=== PATIENT | female | born 1960 | race Caucasian/White ===

== ENCOUNTER 2020-12-01 08:32 | Outpatient (CLI) | payer MEDICARE ==
[~2020-12-01] VITALS: Ht 160 cm; Wt 83.9 kg
[2020-12-01] VITALS (12 sets, daily range): BP systolic 109–185; BP diastolic 78–99
[~2020-12-01 08:32] MED LIST: ALPR0.254 PO; ATOR20TA58 PO; FLUO20CA16 PO; FURO40TA4 PO; HYDR-3165 PO; LISI1TAB37 PO; METF10007 PO; OMEP40CA45 PO; PANT40TA77 PO; TIZA4TAB2 PO
[2020-12-01] MEDS ORDERED: ALPR0.5T6 PO (08:55)
[2020-12-01] MEDS ORDERED: FAMO-63 PO (08:55)
[2020-12-01] MEDS ORDERED: FLUT9.9S NS (08:55)
[2020-12-01] MEDS ORDERED: MULT1CAP33 PO (08:55)
[2020-12-01] MEDS ORDERED: DULO60CA6 PO (08:55)
[2020-12-01] MEDS ORDERED: ESOM40CA PO (08:55)
[2020-12-01] MEDS ORDERED: TIOT4MIS3 IH (08:55)
[2020-12-01] MEDS ORDERED: HYDR25TA PO (08:55)
[2020-12-01] MEDS ORDERED: BREX3TAB PO (08:55)
[2020-12-01] MEDS ORDERED: L.AC1CAP6 PO (08:55)
[2020-12-01] MEDS ORDERED: ATOR10TA60 PO (08:55)
[2020-12-01] MEDS ORDERED: fentaNYL PF VIAL 100 MCG/2 ML VIAL ONE (09:10)
[2020-12-01] MEDS ORDERED: MIDAZOLAM HCL/PF 2 MG/2 ML VIAL. ONE (09:10)
[2020-12-01] MEDS ORDERED: LIDOCAINE WITH 8.4% SOD BICARB 3 ML DISP.SYRIN. ONE (09:11)
[2020-12-01 09:20] LABS: BASO # 0.1 x10^3/uL (0.0-0.2); BASO % 1 % (0-3); EOS # 0.4 x10^3/uL (0.0-0.7); EOS % 5 % (0-3); HEMATOCRIT 42.4 % (36.0-47.0); HEMOGLOBIN 14.3 g/dL (12.0-15.5); LYMPH # 2.8 x10^3/uL (1.0-4.8); LYMPH % 33 % (24-48); MEAN CORPUSCULAR HEMOGLOBIN 31 pg (25-35); MEAN CORPUSCULAR HGB CONC 34 g/dL (31-37); MEAN CORPUSCULAR VOLUME 92 fL (79-100); MONO # 0.7 x10^3/uL (0.0-1.1); MONO % 9 % (0-9); NEUT # 4.4 x10^3/uL (1.8-7.7); NEUT % 52 % (31-73); PLATELET COUNT 304 x10^3/uL (140-400); RED CELL DISTRIBUTION WIDTH 13.7 % (11.5-14.5); WHITE BLOOD COUNT 8.4 x10^3/uL (4.0-11.0)
[2020-12-01] MEDS ORDERED: MIDAZOLAM HCL/PF 2 MG/2 ML VIAL. IV ONE (09:30)
[2020-12-01] MEDS ORDERED: fentaNYL PF VIAL 100 MCG/2 ML VIAL IV ONE (09:30)
[2020-12-01] MEDS ORDERED: LIDOCAINE WITH 8.4% SOD BICARB 3 ML DISP.SYRIN. IJ ONE (09:30)
[2020-12-01 09:39] LABS: PROTHROMBIN TIME PATIENT 12.7 SEC (11.7-14.0)
--- NOTE | 2020-12-01 12:33 | RAD ---
EXAM: Chest, single view. HISTORY: Lung biopsy. COMPARISON: None. FINDINGS: A frontal view of the chest is obtained. There is a left infrahilar nodular opacity. There is no consolidation, pleural effusion or pneumothorax. There is emphysema. The heart is normal in siz e. IMPRESSION: 1. Left infrahilar nodular opacity. Correlate with pathology findings corresponding with biopsy of th is lesion on the same date. No pneumothorax is visible radiographically. 2. Emphysema. Electronically signed by: Judy Nash MD (12/01/2020 12:31 PM) [id number]
--- NOTE | 2020-12-01 12:59 | NUR ---
PIV removed. D/C instructions provided on site care, sedation. Patient verbalized understanding. at bedside. No questions at time of d/c. All belongings taken at time of d/c. Patient's transporting home.
--- NOTE | 2020-12-03 12:52 | RAD ---
CT-guided bone CT-guided biopsy, left lower lobe mass. 12/03/2020 10:47 AM Indication: Left lower lobe lung mass mass Discussion: The risks and benefits of the procedure, including but not limited to, bleeding and infection were discussed patient. Informed consent was obtained. The patient was brought to the CT scanner and placed in the prone position. A timeout procedure was performed CT imaging redemonstrates a spiculated mass in the right lower lobe. 1% lidocaine was administered for local anesthesia. Under intermittent CT guidance 17-gauge needle was advanced into the mass. Core biopsy samples were obtained. A pneumothorax prevention device was deployed. The guiding needle was removed. Manual pressure was held. Repeat CT imaging demonstrates minimal tenting of the pleura without other significant pneumothorax. Sterile dressings were applied. The procedure was performed under conscious sedation including continuous cardiopulmonary monitoring via dedicated sedation nurse. Sedation time: 20 minutes Impression: CT-guided biopsy, spiculated mass left lower lobe PQRS Compliance Statement: One or more of the following individualized dose reduction techniques were utilized for this examination: 1. Automated exposure control 2. Adjustment of the mA and/or kV according to patient size 3. Use of iterative reconstruction technique
--- NOTE | 2020-12-06 11:25 | PATHOLOGY ---
[facility] Accession Number: [id number] . 01 Material submitted: . lung - LEFT LUNG MASS CORE BIOPSY. Modifiers: left . 01 Clinical history: . LEFT LUNG MASS IMAGE GUIDED LEFT LUNG BIOPSY . 02 Diagnosis: Lung "left mass", needle biopsy: - SQUAMOUS CELL CARCINOMA, MODERATE TO POORLY DIFFERENTIATED. . The findings are conveyed to Dr. Altaf Dillon on 12/03/2020 at approximately 11:15. . (MLK:[facility]; 12/03/2020) S 12/03/2020 1158 Local . 02 Comment: The case is seen in co-review by Dr. Shahram Dos Santos, who concurs with the above diagnosis. (MLK:[facility]; 12/03/2020) . 02 Electronically signed: . Toyin Diallo MD, Pathologist NPI- [id number] . 01 Gross description: . The specimen is received in formalin, labeled "Marleen Npaier, left lung BX mass" and consist of 2 soft cummings tissue cores measuring up to 1.2 x less than 0.1cm entirely submitted in A1.([facility]; 12/01/2020) SEBAS/SEBAS 12/01/2020 2210 Local . 02 Microscopic: . Immunohistochemical stain results (properly controlled): . CK5/6 (A1) - Cytoplasmic staining of tumor cells. p40 (A1) - Nuclear staining of tumor cells. Napsin A (A1) - Tumor cells negative. TTF-1 (A1) - Tumor cells negative; pneumocytes positive. . (ML:[facility]; 12/03/2020) . 02 Pathologist provided ICD-10: C34.92 . 02 CPT . 137700, K77145, P32351 Specimen Comment: A courtesy copy of this report has been sent to [phone] Specimen Comment: Report sent to Performed at: 01 [facility] [address] [place] [id number] MD Scotty Baker MD Phone: [phone] Performed at: 02 [facility] [address], [place] [id number] MD Leo Dacosta MD Phone: [phone]
== END 2020-12-01 12:45 | disposition home or self-care (01) ==
LOC: INTRAD 08:32
PROVIDERS: ATTEND Internal Medicine Critical Care Medicine
DX: R91.8 Other nonspecific abnormal finding of lung field (principal); C34.92 Malignant neoplasm of unspecified part of left bronchus or lung; E78.00 Pure hypercholesterolemia, unspecified; E11.9 Type 2 diabetes mellitus without complications; E03.9 Hypothyroidism, unspecified; E66.9 Obesity, unspecified; K21.9 Gastro-esophageal reflux disease without esophagitis; I10 Essential (primary) hypertension; M19.90 Unspecified osteoarthritis, unspecified site; F41.9 Anxiety disorder, unspecified; F32.9 Major depressive disorder, single episode, unspecified; Z87.891 Personal history of nicotine dependence; Z79.899 Other long term (current) drug therapy; Z98.890 Other specified postprocedural states; Z90.710 Acquired absence of both cervix and uterus; Z88.0 Allergy status to penicillin; Z88.2 Allergy status to sulfonamides; Z88.6 Allergy status to analgesic agent; Z88.8 Allergy status to other drugs, medicaments and biological substances; Z20.822 Contact with and (suspected) exposure to COVID-19
CPT/HCPCS: 32408; 36415; 71045; 85025; 85610; 87426; 88305; 88341; 88342; 99152; J2250; J3010; J3490

== ENCOUNTER → 2020-12-10 | Outpatient (CLI) | payer MEDICARE ==
[2020-12-01 12:25] VITALS: BP 160/92
[~2020-12-10] MED LIST changes: +ALPR0.5T6 PO; +ATOR10TA60 PO; +BREX3TAB PO; +DULO60CA6 PO; +ESOM40CA PO; +FAMO-63 PO; +FLUT9.9S NS; +HYDR25TA PO; +L.AC1CAP6 PO; +MULT1CAP33 PO; +TIOT4MIS3 IH
--- NOTE | 2020-12-10 12:40 | RAD ---
EXAM: PET/CT SCAN INDICATION: Lung cancer COMPARISON: CT chest 11/17/2020 PET/CT SCAN TECHNIQUE: Approximately 60 minutes after the intravenous administration of 15.1 millicur ies of F-18 fluorodeoxyglucose (FDG), PET imaging of the body from the base of the skull through the mid thighs was performed. Reconstruction in all 3 planes were performed. The patient's serum glucose level at the time of the F-18 FDG administration was 89 mg/dL. A noncontrast CT scan was obtained for attenuation correction and anatomic localization purposes only and is not considered a diagnostic CT scan. PQRS compliance Statement One or more of the following individualized dose reduction techniques were utilized for this study: 1. Automated exposure control 2. Adjustment of the mA and/or kV according to patient size 3. Use of iterative reconstruction technique FINDINGS: Background: Mediastinal SUV max: 2.72 Liver SUV max: 3.33 HEAD AND NECK: No abnormal radiotracer uptake in the head and neck. CHEST: There is FDG uptake in a 2.4 x 1.9 cm spiculated left lower lobe mass with SUV max 11.4. There are several right axillary lymph nodes increased FDG uptake. One axillary node measuring 1.6 x 1.0 c m has SUV max 7.09. A second measuring 1.8 x 0.9 cm has SUV max 5.05. There are several small subpect oral lymph nodes, one of which has SUV max 5.65 and another 3.33. Of note, the patient had her second Covid vaccine in the right arm on 12/08/2020. There is a focus of FDG uptake in the right hilar region , possibly a small lymph node, SUV max 4.41. Low-level FDG uptake within small left periaortic and sanchez bcarinal lymph nodes with SUV max 2.96, similar to baseline. There is focal FDG uptake at the gastroe sophageal junction with SUV max 5.21. There is mild emphysema. The heart is normal in size. ABDOMEN AND PELVIS: No lymphadenopathy. Scattered FDG uptake in the bowel including distal small douglas l, cecum, and anus with SUV max ranging 5.1-7.7, nonspecific. The liver, gallbladder, pancreas, splee n, adrenal glands, kidneys are normal. MUSCULOSKELETAL: No abnormal FDG uptake. IMPRESSION: 1. FDG avid left lower lobe mass with SUV max 11.4 consistent with the patient's reported lung cancer . 2. FDG uptake in several right axillary lymph nodes and subpectoral lymph nodes with SUV max up to 7. . This is indeterminate but may be reactive to recent Covid vaccine in the right arm. Recommend atten tion on follow-up. 3. Mild FDG uptake in the right hilar region with SUV max 4.41, could be reactive although metastatic disease not excluded. 4. Focal FDG uptake at the GE junction and scattered in the bowel, likely infectious or inflammatory. Electronically signed by: Rosalva Hawkins MD (12/10/2020 12:38 PM) [id number]
== END ==
LOC: PETSC 09:00
PROVIDERS: ATTEND Internal Medicine Critical Care Medicine
DX: R91.8 Other nonspecific abnormal finding of lung field (principal)
CPT/HCPCS: 78815; A9552

== ENCOUNTER → 2021-05-03 | Outpatient (CLI) | payer MEDICARE ==
[2020-12-01 12:25] VITALS: BP 160/92
[~2021-05-03] MED LIST changes: -DULO60CA6 PO; +DULO60CA7 PO; -OMEP40CA45 PO; +OMEP40CA7 PO
[2021-05-03 14:48] LABS: BASO # 0.1 x10^3/uL (0.0-0.2); BASO % 1 % (0-3); EOS # 0.2 x10^3/uL (0.0-0.7); EOS % 3 % (0-3); HEMATOCRIT 39.7 % (36.0-47.0); HEMOGLOBIN 13.4 g/dL (12.0-15.5); LYMPH # 2.4 x10^3/uL (1.0-4.8); LYMPH % 29 % (24-48); MEAN CORPUSCULAR HEMOGLOBIN 32 pg (25-35); MEAN CORPUSCULAR HGB CONC 34 g/dL (31-37); MEAN CORPUSCULAR VOLUME 94 fL (79-100); MONO # 0.6 x10^3/uL (0.0-1.1); MONO % 7 % (0-9); NEUT # 5.1 x10^3/uL (1.8-7.7); NEUT % 60 % (31-73); PLATELET COUNT 253 x10^3/uL (140-400); RED BLOOD COUNT 4.21 x10^6/uL (3.50-5.40); WHITE BLOOD COUNT 8.4 x10^3/uL (4.0-11.0)
[2021-05-03 15:06] LABS: CALCIUM 9.4 mg/dL (8.5-10.1); CREATININE 0.9 mg/dL (0.6-1.0); GFR 64.3
[2021-05-03 15:21] LABS: ALBUMIN 3.3 g/dL (3.4-5.0); TOTAL BILIRUBIN 0.3 mg/dL (0.2-1.0); TOTAL PROTEIN 6.7 g/dL (6.4-8.2)
== END ==
LOC: ONCLAB 14:12
PROVIDERS: ATTEND Internal Medicine Hematology & Oncology
DX: C34.32 Malignant neoplasm of lower lobe, left bronchus or lung (principal)
CPT/HCPCS: 36415; 80053; 85025

== ENCOUNTER → 2021-09-02 | Outpatient (CLI) | payer MEDICARE ==
[2020-12-01 12:25] VITALS: BP 160/92
[~2021-09-02] MED LIST changes: +TIZA-75 PO; -TIZA4TAB2 PO
--- NOTE | 2021-09-03 16:57 | CARD ---
MR#: [id number] Date of Study: 09/02/2021 Ordering Physician: KY DE LEON, Referring Physician: KY DE LEON Tech: Betsy Wu TONY APPROVED REPORT EXAM: Two-dimensional and M-mode echocardiogram with Doppler and color Doppler. Other Information Quality : AverageHR: 85bpm Rhythm : NSR INDICATION Palpitations RISK FACTORS Hypertension Obesity Hyperlipidemia 2D DIMENSIONS RVDd2.1 (2.9-3.5cm)Left Atrium(2D)2.9 (1.6-4.0cm) IVSd1.3 (0.7-1.1cm)Aortic Root(2D)3.3 (2.0-3.7cm) LVDd3.7 (3.9-5.9cm)PWd1.1 (0.7-1.1cm) LEFT VENTRICLE The left ventricle is normal size. There is mild concentric left ventricular hypertrophy. The left ve ntricular systolic function is normal and the ejection fraction is within normal range. Estimated eje ction fraction 65%. There is normal LV segmental wall motion. Transmitral Doppler flow pattern is Gra de I-abnormal relaxation pattern. RIGHT VENTRICLE The right ventricle is normal size. There is normal right ventricular wall thickness. The right ventr icular systolic function is normal. ATRIA The left atrium size is normal. The right atrium size is normal. The interatrial septum is intact wit h no evidence for an atrial septal defect or patent foramen ovale as noted on 2-D or Doppler imaging. AORTIC VALVE The aortic valve is normal in structure and function. Doppler and Color Flow revealed trace aortic re gurgitation. There is no significant aortic valvular stenosis. MITRAL VALVE The mitral valve is normal in structure and function. There is no evidence of mitral valve prolapse. There is no mitral valve stenosis. Doppler and Color Flow revealed no mitral valve regurgitation note d. TRICUSPID VALVE The tricuspid valve is normal in structure and function. Doppler and Color Flow revealed trace tricus pid regurgitation. Estimated PAP 25 mmHg. There is no tricuspid valve stenosis. PULMONIC VALVE Doppler and Color Flow revealed no pulmonic valvular regurgitation. There is no pulmonic valvular christiano nosis. GREAT VESSELS The aortic root is normal in size. The ascending aorta is normal in size. The IVC is normal in size a nd collapses >50% with inspiration. PERICARDIAL EFFUSION There is no evidence of significant pericardial effusion. Critical Notification Critical Value: No <Conclusion> The left ventricular systolic function is normal and the ejection fraction is within normal range. E stimated ejection fraction 65%. There is normal LV segmental wall motion. Signed by : Laci Mix, Electronically Approved : 09/03/2021 16:56:59
== END ==
LOC: ECHO 12:36
PROVIDERS: ATTEND Family Medicine
DX: I11.9 Hypertensive heart disease without heart failure (principal); R00.0 Tachycardia, unspecified; M62.81 Muscle weakness (generalized)
CPT/HCPCS: 93306; C8929

== ENCOUNTER 2021-11-06 11:36 | Observation (INO) | payer MEDICARE ==
[~2021-11-06] VITALS: Ht 162.6 cm; Wt 88.6 kg
[2021-11-06] MEDS ORDERED: fentaNYL PF VIAL 100 MCG/2 ML VIAL IVP ONE (12:00)
--- NOTE | 2021-11-06 12:27 | RAD ---
Two-view left humerus and 3 view left shoulder HISTORY: Pain status post fall 2 view left humerus: AP lateral views There is a mildly comminuted fracture of the proximal left humerus. Three-view left shoulder: AP and crosstable lateral and Y views left shoulder There is a mildly comminuted fracture involving the left humeral head and neck with no significant di splacement however there is destruction of the greater tuberosity. The glenohumeral relationship is n ormal. IMPRESSION: Acute fracture of left humeral head and neck. Electronically signed by: Edwar Diaz III, MD (11/06/2021 12:25 PM) [facility]
[2021-11-06] MEDS ORDERED: HYDROmorphone 2 MG/ML INJ. IVP ONE ×2 (13:00→14:00)
--- NOTE | 2021-11-06 13:07 | PHYS DOC ---
Past Medical History Additional Past Medical Histor: LUNG CA 01/2021 Past Surgical History: , Hysterectomy, Other Additional Past Surgical Histo: GASTRIC SLEEVE, LEFT LOWER LOBE REMOVED Smoking Status: Former Smoker General Adult EDM: Chief Complaint: SHOULDER INJURY HPI: HPI: Patient is a 60 year old female who presents with was at home when she tripped and fell and went to catch herself and grabbed the chain-link fence. She then felt pain in the left upper arm shoulder area and let go and hit her face on the rest of the fence. She is only complaining of left shoulder and upper arm pain at a 10 out of 10. EMS gave the patient 100 mcgs of fentanyl. Patient was crying and still in pain upon arrival to the emergency room. History of lung cancer as of January 2021, gastric sleeve, , hysterectomy, left lower lobe lung removed, former smoker. She denies syncope, dizziness, headache, chest pain, neck pain, back pain, nausea, vomiting, numbness or tingling, focal weakness. Review of Systems: Review of Systems: Constitutional: Denies fever or chills. [] Eyes: Denies change in visual acuity. [] HENT: Denies nasal congestion or sore throat. [] Respiratory: Denies cough or shortness of breath. [] Cardiovascular: Denies chest pain or edema. [] GI: Denies abdominal pain, nausea, vomiting, bloody stools or diarrhea. [] : Denies dysuria. [] Musculoskeletal: Denies back pain or + left shoulder joint pain. + left upper arm pain [] Integument: Denies rash. [] Neurologic: Denies headache, focal weakness or sensory changes. [] Endocrine: Denies polyuria or polydipsia. [] Lymphatic: Denies swollen glands. [] Psychiatric: Denies depression or anxiety. [] Heart Score: C/O Chest Pain: No Current Medications: Current Medications Medications (Trade) Dose Ordered Sig/Jeremi Start Time Stop Time Status Last Admin Dose Admin Fentanyl Citrate (Fentanyl 2ml Vial) 50 mcg 1X ONCE 11/06/21 12:00 11/06/21 12:01 DC 11/06/21 12:15 50 MCG Allergies: Allergies: Allergies Coded Allergies Type Severity Reaction Last Updated Verified aripiprazole Allergy Severe anxiety 06/01/16 Yes Penicillins Allergy Intermediate 06/01/16 Yes bupropion Allergy Intermediate 06/01/16 Yes Sulfa (Sulfonamide Antibiotics) Allergy Mild 06/01/16 Yes morphine Allergy Unknown feet swelled up and itched real bad-no problem w/fentanyl 12/01/20 Yes Physical Exam: PE: Constitutional: Well developed, well nourished, no acute distress, non-toxic appearance. [] HENT: Normocephalic, atraumatic, bilateral external ears normal, oropharynx moist, no oral exudates, nose normal. [] Eyes: PERRLA, EOMI, conjunctiva normal, no discharge. [] Neck: Normal range of motion, no tenderness, supple, no stridor. [] Cardiovascular:Heart rate regular rhythm, no murmur [] Lungs & Thorax: Bilateral breath sounds clear to auscultation [] Abdomen: Bowel sounds normal, soft, no tenderness, no masses, no pulsatile masses. [] Skin: Warm, dry, no erythema, no rash. [] Back: No tenderness, no CVA tenderness. [] Extremities: Left dorsal humeral/ shoulder tenderness, no cyanosis, no clubbing, ROM not intact, no edema. [] Neurologic: Alert and oriented X 3, normal motor function, normal sensory function, no focal deficits noted. [] Psychologic: Affect normal, judgement normal, mood normal. [] Current Patient Data: Vital Signs: Vital Signs Date Time Temp Pulse Resp B/P (MAP) Pulse Ox O2 Delivery O2 Flow Rate FiO2 11/06/21 12:15 24 99 Room Air 11/06/21 11:36 98.1 72 171/79 (109) 98.1 EKG: EKG: [] Radiology/Procedures: Radiology/Procedures: [] Impression: [facility] [address] [place] [address] IMAGING REPORT Signed PATIENT: RIN MACHUCA ACCOUNT: [id number] : 1960 LOCATION: ER AGE: 60 SEX: F EXAM STATUS: PRE ER ORD. PHYSICIAN: ELLIOTT TRACY APRN REASON: PAIN, FALL, PT STATES HAVING SHOULDER PAIN,UNABLE TO MOVE PROCEDURE: SHOULDER 2+V LEFT Two-view left humerus and 3 view left shoulder HISTORY: Pain status post fall 2 view left humerus: AP lateral views There is a mildly comminuted fracture of the proximal left humerus. Three-view left shoulder: AP and crosstable lateral and Y views left shoulder There is a mildly comminuted fracture involving the left humeral head and neck with no significant displacement however there is destruction of the greater tuberosity. The glenohumeral relationship is normal. IMPRESSION: Acute fracture of left humeral head and neck. Electronically signed by: Zak Yang III, MD (11/06/2021 12:25 PM) HARVEYKIM DICTATED and SIGNED BY: ZAK YANG III, MD DATE: 11/06/211221 [facility] [address] [place] [address] IMAGING REPORT Signed PATIENT: RIN MACHUCA ACCOUNT: [id number] : 1960 LOCATION: ER AGE: 60 SEX: F EXAM STATUS: PRE ER ORD. PHYSICIAN: ELLIOTT TRACY APRN REASON: PAIN, FALL, PT HAVING ARM PAIN, UPPER UNABLE TO MOVE FREELY PROCEDURE: HUMERUS LEFT Two-view left humerus and 3 view left shoulder HISTORY: Pain status post fall 2 view left humerus: AP lateral views There is a mildly comminuted fracture of the proximal left humerus. Three-view left shoulder: AP and crosstable lateral and Y views left shoulder There is a mildly comminuted fracture involving the left humeral head and neck with no significant displacement however there is destruction of the greater tuberosity. The glenohumeral relationship is normal. IMPRESSION: Acute fracture of left humeral head and neck. Electronically signed by: Zak Yang III, MD (11/06/2021 12:25 PM) [facility] DICTATED and SIGNED BY: ZAK YANG III, MD DATE: 11/06/212 Course & Med Decision Making: Course & Med Decision Making Pertinent Labs and Imaging studies reviewed. (See chart for details) See HPI. Alert and oriented x4. Speaks in full clear sentences. No deformity to the left shoulder but tenderness to the dorsal and anterior shoulder area and upper arm lateral in the humeral area of the arm. Radial pulse are present. Cap refill less than 2 seconds. Full range of motion in the wrist and elbow. Patient is unable to move shoulder due to pain. There is no bruising, lacerations or abrasions. No facial trauma or trauma to her head. No focal bony spinal tenderness. Full range of motion of her neck. Patient has a humeral neck fracture. Her pain is intractable. She has received 150MCG of fentanyl, 1MG Dilaudid patient is still very tearful and in pain. Patient is not wanting to move. She is refusing CT head and neck due to the pain. I have ordered a arm sling for the patient. Patient is admitted to Dr. De Leon. I have spoken to Dr. Lyle with Ortho to let her know about the patient. Patient is still refusing CT head and neck. [] Amalia Disclaimer: Amalia Disclaimer: This electronic medical record was generated, in whole or in part, using a voice recognition dictation system. Departure Departure Impression: Primary Impression: Fx humeral neck Qualified Codes: S42.212A - Unspecified displaced fracture of surgical neck of left humerus, initial encounter for closed fracture Additional Impression: Intractable pain Disposition: ADMITTED INPATIENT Admitting Physician: Ky De Leon Condition: STABLE Referrals: KY DE LEON MD (PCP) ELLIOTT TRACY ANALYST [facility]CRO[facility] Nov 06, 2021 13:07
[2021-11-06 15:30] VITALS: BP 159/84
[2021-11-06] MEDS: IPRATRPIUM/ALBUTEROL 0.5/2.5MG 3 ML NEBU. NEB SCH (18:36)
[2021-11-06 19:00] VITALS: BP 127/71
[2021-11-06] MEDS: oxyCODONE/APAP 5/325 1 TAB TABLET PO PRN ×2 (19:07→22:47)
--- NOTE | 2021-11-06 19:48 | PDOC2 ---
CONSULT Date of Consult Date of Consult DATE: 11/06/21 TIME: 19:40 Reason for Consult Reason for Consult: Left proximal humerus fracture History of Present Illness Reason for Visit: Patient reports that earlier today, she tripped forward into a chain link fence. She says that she caught herself and her body weight came down on her arms which made her let go of the fence. She then fell and rolled onto her back and was unable to get up. She had pain in her left shoulder and was brought to [facility] where she was found to have a left proximal humerus fracture. She was admitted for intractable pain. Patient denies any numbness or tingling or radicular symptoms. She does say her pain is better with the pain medication that she has gotten. Past Medical History Past Medical History Significant for sleep apnea, depression, anxiety, GERD, high cholesterol, hypertension, lung cancer with resection in January 2021 Past Surgical History Past Surgical History Significant for gastric sleeve in 2014, lower left lung removed in January 2021 for cancer, sections Family History Family History Her brother has a genetic disorder that predisposes him to blood clots, he has had multiple pulmonary emboli Social History Social History Patient reports that she quit smoking in May 2020 and prior to that smoked 2 packs a day for approximately 35 years. She says she rarely uses alcohol, no drug use. She is and is on disability for her depression/anxiety. Current Problem List Problem List Problems Medical Problems: (1) Fx humeral neck Status: Acute (2) Intractable pain Status: Acute Current Medications Current Medications Patient reports home medications of atorvastatin, duloxetine, risperidone, omeprazole, Flonase, Pepcid AC and bariatric vitamins with probiotics Current Medications Fentanyl Citrate (Fentanyl 2ml Vial) 50 mcg 1X ONCE IVP Last administered on 11/06/21at 12:15; Start 11/06/21 at 12:00; Stop 11/06/21 at 12:01; Status DC Hydromorphone HCl (Dilaudid) 0.5 mg 1X ONCE IVP Last administered on 11/06/21at 13:19; Start 11/06/21 at 13:00; Stop 11/06/21 at 13:06; Status DC Hydromorphone HCl (Dilaudid) 0.5 mg 1X ONCE IVP Last administered on 11/06/21at 14:34; Start 11/06/21 at 14:00; Stop 11/06/21 at 14:01; Status DC Alprazolam (Xanax) 0.5 mg DAILY PO ; Start 11/07/21 at 09:00 Atorvastatin Calcium (Lipitor) 10 mg QHS PO ; Start 11/06/21 at 21:00 Famotidine (Pepcid) 20 mg HS PO ; Start 11/06/21 at 21:00 Hydroxyzine HCl (Atarax) 25 mg TID PO ; Start 11/06/21 at 21:00 Non-Formulary Medication (Brexpiprazole (Rexulti)) 1 tab DAILY PO ; Start 11/07/21 at 09:00; Status UNV Duloxetine HCl (Cymbalta) 120 mg DAILY PO ; Start 11/06/21 at 17:00 Pantoprazole Sodium (Protonix) 40 mg DAILYAC PO ; Start 11/07/21 at 07:30 Fluticasone Propionate (Flonase) 2 spray DAILY NS ; Start 11/07/21 at 09:00 Lactobacillus Rhamnosus (Culturelle) 1 cap TID PO ; Start 11/06/21 at 21:00 Multivitamins (Thera M Plus) 1 tab DAILY PO ; Start 11/07/21 at 09:00 Non-Formulary Medication (Tiotropium Br/ Olodaterol HCl (Stiolto Respimat Inhal Sylvania)) 4 gm BID IH ; Start 11/06/21 at 21:00; Status UNV Albuterol/ Ipratropium (Duoneb) 3 ml RTQID NEB Last administered on 11/06/21at 18:36; Start 11/06/21 at 20:00 Oxycodone/ Acetaminophen (Percocet 5/325) 1 tab PRN Q3HRS PRN PO PAIN Last administered on 11/06/21at 19:07; Start 11/06/21 at 18:15 Active Scripts Active Reported Pepcid (Famotidine) 20 Mg Tablet 20 Mg PO HS Flonase Allergy Relief (Fluticasone Propionate) 9.9 Ml S[place].susp 2 Sprays NS DAILY Probiotic (L.acidoph & Paracasei,B.lactis) 1 Each Capsule 1 Cap PO TID 10 Days Bariatric Mv-Iron 45 mg Cap (Multivit-Min/Iron/Folic Acid/K) 1 Each Capsule 1 Each PO DAILY Nexium Capsule (Esomeprazole Magnesium) 40 Mg Capsule.dr 1 Cap PO DAILY Rexulti (Brexpiprazole) 3 Mg Tablet 1 Tab PO DAILY 30 Days Hydroxyzine Hcl 25 Mg Tablet 1 Tab PO TID Alprazolam 0.5 Mg Tablet 1 Tab PO DAILY Atorvastatin Calcium 10 Mg Tablet 1 Tab PO DAILY Cymbalta (Duloxetine Hcl) 60 Mg Capsule.dr 2 Cap PO DAILY Stiolto Respimat Inhal Sylvania (Tiotropium Br/Olodaterol HCl) 4 Gm Mist.inhal 4 Gm IH BID Allergies Allergies: Coded Allergies: aripiprazole (Verified Allergy, Severe, anxiety, 06/01/16) Penicillins (Verified Allergy, Intermediate, 06/01/16) bupropion (Verified Allergy, Intermediate, 06/01/16) Sulfa (Sulfonamide Antibiotics) (Verified Allergy, Mild, 06/01/16) morphine (Verified Allergy, Unknown, feet swelled up and itched real bad- no problem w/fentanyl, 12/01/20) ROS Review of System Patient denies any head trauma with her fall. No loss of consciousness. No headache. No blurry vision or double vision. No ringing in the ears or difficulty hearing. No difficulty swallowing. No thyroid problems or diabetes. No chest pain. She has had shortness of breath since having her lung resected but none worsening. She does have constipation. No diarrhea. No blood in the stool or urine. No dysuria. Physical Exam Physical Exam Patient is a 60-year-old female who appears well-developed, well-nourished and in no acute distress. She is seen sitting up in her hospital bed comfortably. She is right-hand dominant. She interacts with exam appropriately. The left shoulder has intact skin. There is no erythema warmth or induration. She does have tenderness to palpation. Neurovascularly intact in the hand. Vitals VITALS Vital Signs Date Time Temp Pulse Resp B/P (MAP) Pulse Ox O2 Delivery O2 Flow Rate FiO2 11/06/21 19:07 Room Air 11/06/21 18:35 98 2.0 11/06/21 15:30 97.8 84 16 159/84 (109) 97.8 Images Images Shoulder x-rays were reviewed and show acute proximal humerus fracture without dislocation. Assessment/Plan Assessment/Plan Left proximal humerus fracture Given her recent cancer diagnosis and her family history, we would recommend anticoagulation. She cannot take aspirin because of her previous gastric sleeve. She says that her brother does have a genetic component for his PEs but she has never been tested for that. She did have recent surgery with her lung resection and says she has never had any issues with pulmonary emboli or DVTs. We would still recommend anticoagulation given the whole clinical picture. We will defer to internal medicine for that. She can have a sling to the left upper extremity but needs to have elbow range of motion if the sling is comfortable. We will have therapy work with her before she leaves. While she is in bed we should use SCDs and will also order incentive spirometry for her. She can discharge to home when she is cleared from internal medicine view. Follow-up in our outpatient clinic in 1 to 2 weeks, our contact information was given to her. Patient agrees with this plan. All plain films that were available were reviewed. ASHLY CHRISTENSEN Nov 06, 2021 19:48
[2021-11-06] MEDS: DULoxetine HCL 30 MG CAPSULE.DR PO SCH (20:10)
[2021-11-06] MEDS: LACTOBACILLUS RHAMNOSUS GG 1 CAPSULE. PO SCH (21:00)
[2021-11-06] MEDS ORDERED: ATORVASTATIN CALCIUM 10 MG TABLET. PO SCH (21:00)
[2021-11-06] MEDS: hydrOXYzine 25 MG TABLET PO SCH (21:00)
[2021-11-06] MEDS ORDERED: NON FORMULARY ITEM (Tiotropium Br/Olodaterol HCl (Stiolto Respimat Inhal Spray) 4 GM) IH SCH (21:00)
[2021-11-06] MEDS ORDERED: FAMOTIDINE 20 MG TABLET. PO SCH (21:00)
[2021-11-06 23:00] VITALS: BP 128/81
[2021-11-07] MEDS: oxyCODONE/APAP 5/325 1 TAB TABLET PO PRN ×3 (02:05→12:15)
[2021-11-07 03:00] VITALS: BP 132/78
[2021-11-07 07:00] VITALS: BP 135/74
--- NOTE | 2021-11-07 07:08 | RAD ---
EXAM: XR LT SHOULDER 1 VIEW 11/06/2021 6:44 PM CLINICAL INDICATION: Left shoulder fracture. COMPARISON: Left shoulder and left humerus radiograph 11/06/2021 TECHNIQUE: Single axillary view of the left shoulder FINDINGS: There is no glenohumeral dislocation. A mildly displaced left proximal humerus fracture is redemonstrated. IMPRESSION: No glenohumeral dislocation. Unchanged left proximal humeral fracture. Electronically signed by: Rosalva Hawkins MD (11/07/2021 7:05 AM) [facility]
[2021-11-07] MEDS: IPRATRPIUM/ALBUTEROL 0.5/2.5MG 3 ML NEBU. NEB SCH ×2 (07:09→11:25)
[2021-11-07] MEDS ORDERED: PANTOPRAZOLE 40 MG TABLET.DR. PO SCH (07:30)
[2021-11-07] MEDS: LACTOBACILLUS RHAMNOSUS GG 1 CAPSULE. PO SCH (07:34)
[2021-11-07] MEDS: hydrOXYzine 25 MG TABLET PO SCH (07:35)
[2021-11-07] MEDS ORDERED: MULTIVITAMIN with MINERAL TABLET. PO SCH (09:00)
[2021-11-07] MEDS ORDERED: NON FORMULARY ITEM (Brexpiprazole (Rexulti) 1 TAB) PO SCH (09:00)
[2021-11-07] MEDS ORDERED: FLUTICASONE 50MCG/NASAL SPRAY 16GM BOTTLE. NS SCH (09:00)
[2021-11-07] MEDS ORDERED: ALPRAZolam 0.5 MG TABLET PO SCH (09:00)
--- NOTE | 2021-11-07 11:49 | SSS ---
DATE OF SERVICE: 11/07/2021 ADMIT DATE: 11/06/2021 HOSPITAL SUMMARY: The patient came in after a fall and has a fracture of the left humeral head and neck, was admitted for orthopedic consult pain control. planned. The patient's x-ray data otherwise unremarkable. She can be followed up as an outpatient at this point. FINAL DIAGNOSIS: Fracture of the left humeral neck , fall. OPERATIONS, PROCEDURES, COMPLICATIONS: None. CONSULTATION: Dr. Lyle. DISPOSITION: We will use [place] [facility]5 for her pain until she sees . a local orthopedist in consultation for followup. She will be in a sling with minimal activity until at that time and nonoperative management is planned. Rest of meds remain the same and I will see her in 3 weeks for routine followup. PEBBLES/CARO/ANEUDY DR: PEBBLES/love TID: [id number]
[2021-11-07] MEDS: DULoxetine HCL 30 MG CAPSULE.DR PO SCH (12:15)
--- NOTE | 2021-11-07 13:23 | NUR ---
pt discharged home with self care. Discharge instructions and discussed. IV removed. Pt assisted to wheelchair and was secured in car with .
== END 2021-11-07 13:25 | disposition home or self-care (01) ==
LOC: ER 11:36 → 4 NORTH 14:13
PROVIDERS: ADMIT Family Medicine; ATTEND Family Medicine
DX: S42.212A Unspecified displaced fracture of surgical neck of left humerus, initial encounter for closed fracture (principal); I10 Essential (primary) hypertension; E78.00 Pure hypercholesterolemia, unspecified; F32.A Depression, unspecified; F41.9 Anxiety disorder, unspecified; Z85.118 Personal history of other malignant neoplasm of bronchus and lung; Z87.891 Personal history of nicotine dependence; Z90.710 Acquired absence of both cervix and uterus; Z98.84 Bariatric surgery status; Z98.891 History of uterine scar from previous surgery; W01.0XXA Fall on same level from slipping, tripping and stumbling without subsequent striking against object, initial encounter; Y92.009 Unspecified place in unspecified non-institutional (private) residence as the place of occurrence of the external cause
CPT/HCPCS: 73020; 73030; 73060; 94640; 94760; 96374; 96375; 96376; 97110; 97116; 97162; 97166; 97535; 99284; A4565; G0378; J1170; J3010; G0379